=== PATIENT | male | born 1935 | race Caucasian/White ===

== ENCOUNTER → 2018-01-14 16:39 | Outpatient (CLI) | payer MEDICARE, BC ==
[2018-01-14 19:19] LABS: EOSINOPHILS 10.7 % (0-7); HEMATOCRIT 42.1 % (42.0-54.0); HEMOGLOBIN 13.9 g/dL (13.5-17.5); IMMATURE GRANULOCYTES 0.2 % (0-5); LYMPHOCYTES 25.7 % (15-50); MCH 31.3 pg (26.0-34.0); MCV 94.8 fL (80.0-100.0); MEAN PLATELET VOLUME 10.5 fL (7.4-10.4); MONOCYTES 13.7 % (2-11); NEUTROPHILS 48.7 % (40-80); PLATELET COUNT 307 10x3/uL (130-400); RBC 4.44 10x6/uL (4.20-6.10); RDW 13.6 % (11.5-14.5); WBC 9.1 10x3/uL (4.8-10.8)
[2018-01-14 19:55] LABS: ALBUMIN 3.4 g/dL (3.4-5.0); ALKALINE PHOSPHATASE 78 U/L (46-116); ALT (SGPT) 26 U/L (10-68); CALC OSMOLALITY 279 mosm/kg (275-300); CALCIUM 9.1 mg/dL (8.5-10.1); CARBON DIOXIDE 27.1 mmol/L (21.0-32.0); CHLORIDE - SERUM 105 mmol/L (98-107); CHOL - HDL RATIO 3.7 ratio (2.3-4.9); CHOLESTEROL, TOTAL 150 mg/dL (0-200); CREATINE KINASE 78 UL (21-232); CREATININE - SERUM 0.7 mg/dL (0.6-1.3); GLUCOSE 93 mg/dL (74-106); HDL CHOLESTEROL 41 mg/dL (32-96); LDL CHOLESTEROL 95 mg/dL (0-100); LDL-HDL RATIO 2.3 ratio (1.5-3.5); POTASSIUM - SERUM 5.4 mmol/L (3.5-5.1); SODIUM 140 mmol/L (136-145); TRIGLYCERIDE 71 mg/dL (30-200); UREA NITROGEN 16 mg/dL (7-18); eGFR NON AFRICAN AMERICAN > 90 mL/min (90-120)
== END | disposition home or self-care (01) ==
LOC: D.LABREF 16:39
PROVIDERS: Internal Medicine Cardiovascular Disease
DX: E78.5 Hyperlipidemia, unspecified (principal); I10 Essential (primary) hypertension

== ENCOUNTER → 2018-01-16 12:19 | Outpatient (CLI) | payer MEDICARE, BC ==
--- NOTE | ~2018-01-16 | EC ---
PATIENT:ORESTES GILMORE DATE OF SERVICE: 01/16/18 SEX: M MEDICAL RECORD: [id number] DATE OF : 35 LOCATION:D. AGE OF PATIENT: 82 ADMISSION DATE: 01/16/18 REFERRING PHYSICIAN: INTERPRETING PHYSICIAN: BIJAL ELIZONDO MD ECHOCARDIOGRAM REPORT ECHO CHARGES 4 ECHO COMPLETE Date: 01/16 CLINICAL DIAGNOSIS: PINEDA/ABN EKG,HTN CHEST PAIN, DIZZINESS ECHOCARDIOGRAPHIC MEASUREMENTS (adult normal given) AC root (d.<3.7cm) 4.2 cm LV Septum d (<1.2 cm> 1.7 cm Valve Excursion 2.2 cm LV Septum (systole) 1.8 cm Left Atria (s.<4.0cm> 3.4 cm LVPW d(<1.2cm) 1.5 cm RV (d.<2.3cm) 3.2 cm LVPW (sytole) 2.0 cm LV diastole(<5.6CM) 5.1 cm MV E-F(>70mm/sec) cm LV systole 3.5 cm LVOT Diameter 1.9 cm MV exc.(>10mm) 1.6 cm Est.ejection fraction (50-75%) % DOPPLER: LVIT cm/sec A 92.0 cm/sec E 88.0 cm/sec LA cm/sec RVSP 18 mmHg LVOT 98 cm/sec AOP1/2T m/s Asc. Ao 128 cm/sec RVOT 88 cm/sec RA cm/sec PA 118 cm/sec AV Gradient Peak 6.51 mmHg AV Mean 2.85 mmHg AV Area 2.2 cm MV Gradient Peak 3.36 mmHg MV Mean 1.39 mmHg MV Area cm COMMENTS: Wood Drilling Machine Operator: 2 MARCELL SAWYER Mapping Engineer: 4 Dr. Elizondo TAPE# PACS Pericardial Effusion N DATE OF SERVICE: PROCEDURE: Transthoracic echocardiogram. FINDINGS: 1. The left ventricle is difficult to visualize throughout its course. Endocardial structures not well defined, appears to have normal function. The patient has inflow characteristics suggestive of diastolic dysfunction. Ejection fraction again appears to be 55% to 60%, but not well visualized. 2. The left atrium is again not well visualized, but grossly normal. ECHOCARDIOGRAM REPORT [id number] ORESTES GILMORE [place] 3. The aortic valve, although not well visualized, appears to be functioning appropriately by continuous and Doppler wave. 4. The mitral valve has mild mitral regurgitation. 5. Tricuspid valve has trace tricuspid regurgitation. RVSP is normal. 6. The right ventricle appears grossly normal to mildly dilated. 7. The right atrium is normal size, normal function. CONCLUSION: In conclusion, the patient has some evidence of diastolic dysfunction. Grossly normal heart with difficult to visualize endocardial structures. TRANSINT:[id number] Voice Confirmation ID: [id number] DOCUMENT ID: [id number] BIJAL ELIZONDO MD at 0819 CC: [id number] DICTATION DATE: 01/20/18 0750 [employer] OPERATOR: 01/20/18 1243 DEP CLI 01/16/18 [facility] [address] [place] [address]
== END | disposition home or self-care (01) ==
LOC: D.US 12:19
DX: R06.09 Other forms of dyspnea (principal); R42 Dizziness and giddiness; I49.3 Ventricular premature depolarization; I10 Essential (primary) hypertension; R07.9 Chest pain, unspecified; R09.89 Other specified symptoms and signs involving the circulatory and respiratory systems

== ENCOUNTER → 2018-02-25 18:55 | Outpatient (CLI) | payer MEDICARE, BC ==
[2018-02-25 20:16] LABS: CHOL - HDL RATIO 2.7 ratio (2.3-4.9); LDL-HDL RATIO 1.4 ratio (1.5-3.5)
== END | disposition home or self-care (01) ==
LOC: D.LABREF 18:55
PROVIDERS: Internal Medicine Cardiovascular Disease
DX: E78.5 Hyperlipidemia, unspecified (principal)

== ENCOUNTER → 2019-09-30 10:45 | Outpatient (CLI) | payer MEDICARE, BC | END | disposition home or self-care (01) | LOC: D.HCCECHO 10:45 | PROVIDERS: ATTEND Internal Medicine Cardiovascular Disease | DX: I25.10 Atherosclerotic heart disease of native coronary artery without angina pectoris (principal) ==